=== PATIENT | male | born 1965 | race Caucasian/White ===

== ENCOUNTER 2016-10-26 11:26 | Inpatient (IN) | payer OTHER ==
[2016-10-26 12:19] VITALS: BMI 29.0
[2016-10-26] MEDS ORDERED: MAGNESIUM HYDROX 2400MG/30ML ORAL SUSPENSION 30 ML CUP PO PRN (15:11)
[2016-10-26] MEDS ORDERED: chlordiazePOXIDE HCL 25 MG CAPSULE PO PRN (15:11)
[2016-10-26] MEDS ORDERED: P-EPHED 60MG/TRIPROLIDI 2.5MG TABLET PO PRN (15:11)
[2016-10-26] MEDS ORDERED: hydrOXYzine PAMOATE 50 MG CAPSULE (FP) PO PRN (15:11)
[2016-10-26] MEDS ORDERED: MENTHOL/PHENOL 1 EACH UD MM PRN (15:11)
[2016-10-26] MEDS ORDERED: MAG HYDROX/AL HYDROX/SIMETH 30 ML UNIT-DOSE CUP PO PRN (15:11)
[2016-10-26] MEDS ORDERED: guaiFENesin/D-METHORPHAN HB 10 ML UNIT-DOSE CUPS PO PRN (15:11)
[2016-10-26] MEDS ORDERED: NICOTINE POLACRILEX 2 MG GUM BC PRN (15:11)
[2016-10-26] MEDS ORDERED: MAGNESIUM CITRATE 300 ML BOTTLE PO PRN (15:11)
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
[2016-10-26] MEDS ORDERED: chlordiazePOXIDE HCL 25 MG CAPSULE PO ONE (15:58)
[2016-10-26] MEDS: NICOTINE 14 MG/24 HOURS TOPICAL PATCH TD SCH (17:25)
[2016-10-26] MEDS: chlordiazePOXIDE HCL 25 MG CAPSULE PO SCH ×2 (17:25→22:02)
[2016-10-26] MEDS: THIAMINE HCL 100 MG TABLET (FP) PO SCH (22:02)
[2016-10-26] MEDS: diphenhydrAMINE HCL 50 MG CAPSULE PO PRN (22:02)
[2016-10-27] MEDS: chlordiazePOXIDE HCL 25 MG CAPSULE PO SCH ×4 (05:20→22:05)
--- NOTE | 2016-10-27 09:24 | PN ---
S CIWA - CIWA Score Nausea/Vomitin Muscle Tremors: 4-Moderate,w/Arms Extend Anxiety: 4-Mod. Anxious/Guarded Agitation: 4-Moderately Restless Paroxysmal Sweats: 3 Orientation: 0-Oriented Tacttile Disturbances: 1-Very Mild Itch/Numbness Auditory Disturbances: 0-None Visual Disturbances: 0-None Headache: 0-None Present CIWA-Ar Total Score: 19 BHS Progress Note (SOAP) Subjective: nausea, sweats, interrupted sleep, anxiety, tremors Objective: 10/27/16 09:23 Vital Signs - 8 hr 10/27/16 10/27/16 03:30 06:20 Temperature 97.2 F L Pulse Rate 90 Respiratory 18 18 Rate Blood Pressure 148/82 labs still pending Assessment: 10/27/16 09:23 withdrawal sx Plan: cont detox, methadoen dose confirmed and ordered 50mg daily first dose now., fluids, encourage ambulation
[2016-10-27] MEDS ORDERED: METHADONE HCL 10 MG TABLET PO SCH (09:30)
[2016-10-27] MEDS ORDERED: METHADONE HCL 10 MG TABLET ONE (09:42)
[2016-10-27] MEDS ORDERED: METHADONE HCL 40 MG DISPERSABLE TABLET ONE (09:42)
[2016-10-27] MEDS: METHADONE 40 MG, METHADONE 10 MG PO SCH (10:07)
[2016-10-27] MEDS: PRENATAL VITAMINS W/ FOLIC ACID TABLET (FP) PO SCH (10:07)
[2016-10-27] MEDS: NICOTINE 14 MG/24 HOURS TOPICAL PATCH TD SCH (10:08)
[2016-10-27 10:12] LABS: MCHC 34.2 g/dl (32.0-35.9); MEAN CELL VOLUME 102.2 fl (80-96); MEAN PLT VOLUME 10.6 fl (7.5-11.1); PLATELET COUNT 38 K/MM3 (134-434); RDW 14.9 % (11.9-15.9); WHITE BLOOD COUNT 4.2 K/mm3 (4.0-10.0)
[2016-10-27 10:35] LABS: ALBUMIN 3.3 g/dl (3.4-5.0); ALK PHOS 123 U/L (45-117); ANION GAP 10 (8-16); BILIRUBIN,TOTAL 1.9 mg/dL (0.2-1.0); CALCIUM 7.6 mg/dL (8.5-10.1); CO2 29 mmol/L (21-32); CREATININE 0.5 mg/dL (0.7-1.3); GLUCOSE,RANDOM 114 mg/dL (74-106); SGOT/AST 295 U/L (15-37); SGPT/ALT 104 U/L (12-78); TOT PROT 7.9 g/dl (6.4-8.2)
[2016-10-27] MEDS ORDERED: INFLUENZA VACCINE 45 MCG/0.5 ML (MDV 16-17) IM ONE (12:00)
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
--- NOTE | 2016-10-27 16:12 | EKG ---
Test Reason : Blood Pressure : / mmHG Vent. Rate : 079 BPM Atrial Rate : 079 BPM P-R Int : 152 ms QRS Dur : 096 ms QT Int : 398 ms P-R-T Axes : 053 074 076 degrees QTc Int : 456 ms NORMAL SINUS RHYTHM NON-SPECIFIC INTRA-VENTRICULAR CONDUCTION DELAY NONSPECIFIC ST ABNORMALITY NO PREVIOUS ECGS AVAILABLE Confirmed by SILVERIO DE LEÓN MD ([id number]) on 10/27/2016 4:11:53 PM Referred By: Confirmed By:SILVERIO DE LEÓN MD
[2016-10-27] MEDS: traZODone HCL 50 MG TABLET (FP) PO SCH (22:05)
[2016-10-27] MEDS: THIAMINE HCL 100 MG TABLET (FP) PO SCH (22:05)
[2016-10-28] MEDS ORDERED: METHADONE HCL 40 MG DISPERSABLE TABLET ONE (05:21)
[2016-10-28] MEDS ORDERED: METHADONE HCL 10 MG TABLET ONE (05:21)
[2016-10-28] MEDS: chlordiazePOXIDE HCL 25 MG CAPSULE PO SCH ×2 (05:22→10:05)
[2016-10-28] MEDS: METHADONE 40 MG, METHADONE 10 MG PO SCH (05:22)
--- NOTE | 2016-10-28 09:45 | PN ---
S CIWA - CIWA Score Nausea/Vomitin-Mild Nausea/No Vomiting Muscle Tremors: 3 Anxiety: 3 Agitation: 2 Paroxysmal Sweats: 2 Orientation: 0-Oriented Tacttile Disturbances: 1-Very Mild Itch/Numbness Auditory Disturbances: 0-None Visual Disturbances: 0-None Headache: 1-Very Mild CIWA-Ar Total Score: 13 BHS Progress Note (SOAP) Subjective: Sweats, body aches, tremors, interrupted sleep Objective: Laboratory Last Values WBC 4.2 K/mm3 (4.0-10.0) 10/27/16 06:00 RBC 3.60 M/mm3 (4.00-5.60) L 10/27/16 06:00 Hgb 12.6 GM/dL (11.7-16.9) 10/27/16 06:00 Hct 36.8 % (35.4-49) 10/27/16 06:00 MCV 102.2 fl (80-96) H 10/27/16 06:00 MCHC 34.2 g/dl (32.0-35.9) 10/27/16 06:00 RDW 14.9 % (11.9-15.9) 10/27/16 06:00 Plt Count 38 K/MM3 (134-434) L D 10/27/16 06:00 MPV 10.6 fl (7.5-11.1) 10/27/16 06:00 Sodium 142 mmol/L (136-145) 10/27/16 06:00 Potassium 3.5 mmol/L (3.5-5.1) D 10/27/16 06:00 Chloride 103 mmol/L (98-107) 10/27/16 06:00 Carbon Dioxide 29 mmol/L (21-32) 10/27/16 06:00 Anion Gap 10 (8-16) 10/27/16 06:00 BUN 6 mg/dL (7-18) L D 10/27/16 06:00 Creatinine 0.5 mg/dL (0.7-1.3) L D 10/27/16 06:00 Creat Clearance w eGFR > 60 (>60) 10/27/16 06:00 Random Glucose 114 mg/dL (74-106) H 10/27/16 06:00 Calcium 7.6 mg/dL (8.5-10.1) L 10/27/16 06:00 Total Bilirubin 1.9 mg/dL (0.2-1.0) H D 10/27/16 06:00 AST 295 U/L (15-37) H D 10/27/16 06:00 ALT 104 U/L (12-78) H D 10/27/16 06:00 Alkaline Phosphatase 123 U/L (45-117) H 10/27/16 06:00 Ammonia 128.63 umol/L (11-32) H 10/27/16 07:00 Total Protein 7.9 g/dl (6.4-8.2) 10/27/16 06:00 Albumin 3.3 g/dl (3.4-5.0) L 10/27/16 06:00 RPR Titer Nonreactive (NONREACTIVE) 10/27/16 06:00 labs noted Vital Signs Temperature 95.9 F L 10/28/16 06:04 Pulse Rate 84 10/28/16 06:04 Respiratory Rate 18 10/28/16 06:04 Blood Pressure 143/89 10/28/16 06:04 O2 Sat by Pulse Oximetry (%) Assessment: withdrawals sx Plan: continue detox Will repeat CMP and Add lacalose
[2016-10-28] MEDS: NICOTINE 14 MG/24 HOURS TOPICAL PATCH TD SCH (10:05)
[2016-10-28] MEDS: PRENATAL VITAMINS W/ FOLIC ACID TABLET (FP) PO SCH (10:05)
[2016-10-28] MEDS: IBUPROFEN 400 MG TABLET (FP) PO PRN ×2 (10:07→17:27)
[2016-10-28 10:24] LABS: URINE APPEARANCE CLEAR; URINE BILIRUBIN NEGATIVE (NEGATIVE); URINE BLOOD NEGATIVE (NEGATIVE); URINE COLOR AMBER; URINE GLUCOSE (UA) NEGATIVE (NEGATIVE); URINE KETONE NEGATIVE (NEGATIVE); URINE LEUK ESTERASE NEGATIVE (NEGATIVE); URINE NITRITE NEGATIVE (NEGATIVE); URINE PROTEIN NEGATIVE (NEGATIVE); URINE UROBILINOGEN 4.0 E.U/dl E.U./dl (0.2-1.0)
[2016-10-28] MEDS: LACTULOSE 20 GM/30 ML UDC (FOR ORAL USE ONLY) PO SCH ×2 (13:13→22:07)
[2016-10-28] MEDS: chlordiazePOXIDE 5 MG CAPSULE PO SCH ×2 (17:24→22:07)
[2016-10-28] MEDS: THIAMINE HCL 100 MG TABLET (FP) PO SCH (22:07)
[2016-10-28] MEDS: traZODone HCL 50 MG TABLET (FP) PO SCH (22:07)
[2016-10-28] MEDS: diphenhydrAMINE HCL 50 MG CAPSULE PO PRN (22:08)
[2016-10-29] MEDS ORDERED: METHADONE HCL 40 MG DISPERSABLE TABLET ONE (01:31)
[2016-10-29] MEDS ORDERED: METHADONE HCL 10 MG TABLET ONE (01:31)
[2016-10-29] MEDS: chlordiazePOXIDE 5 MG CAPSULE PO SCH ×2 (05:31→10:04)
[2016-10-29] MEDS: LACTULOSE 20 GM/30 ML UDC (FOR ORAL USE ONLY) PO SCH ×3 (05:31→22:07)
[2016-10-29] MEDS: METHADONE 40 MG, METHADONE 10 MG PO SCH (05:32)
[2016-10-29] MEDS: NICOTINE 14 MG/24 HOURS TOPICAL PATCH TD SCH (10:04)
[2016-10-29] MEDS: PRENATAL VITAMINS W/ FOLIC ACID TABLET (FP) PO SCH (10:04)
[2016-10-29] MEDS: IBUPROFEN 400 MG TABLET (FP) PO PRN ×2 (10:06→22:05)
[2016-10-29] MEDS: LOPERAMIDE HCL 2 MG CAPSULE PO PRN (10:34)
[2016-10-29 10:46] LABS: ALBUMIN 2.8 g/dl (3.4-5.0); ALK PHOS 124 U/L (45-117); ANION GAP 9 (8-16); BILIRUBIN,TOTAL 2.7 mg/dL (0.2-1.0); CALCIUM 8.9 mg/dL (8.5-10.1); CO2 29 mmol/L (21-32); CREATININE 0.5 mg/dL (0.7-1.3); GLUCOSE,RANDOM 96 mg/dL (74-106); SGOT/AST 136 U/L (15-37); SGPT/ALT 64 U/L (12-78); TOT PROT 7.2 g/dl (6.4-8.2)
--- NOTE | 2016-10-29 12:22 | PN ---
S Progress Note (SOAP) Subjective: Nausea, vomiting, diarrhea, tremor, anxious, restless (patient stated that his doctor told him that he has PNA in his liver, he denies AH/VH, he is A/A/Ox3) Objective: 10/29/16 12:16 Last Vital Signs Temp Pulse Resp BP Pulse Ox 96.6 F L 89 18 121/81 10/29/16 09:42 10/29/16 09:42 10/29/16 09:42 10/29/16 09:42 Laboratory Tests 10/27/16 10/27/16 10/27/16 06:00 06:00 06:00 WBC 4.2 RBC 3.60 L Hgb 12.6 Hct 36.8 MCV 102.2 H MCHC 34.2 RDW 14.9 Plt Count 38 L D MPV 10.6 Sodium 142 Potassium 3.5 D Chloride 103 Carbon Dioxide 29 Anion Gap 10 BUN 6 L D Creatinine 0.5 L D Creat Clearance w eGFR > 60 Random Glucose 114 H Calcium 7.6 L Total Bilirubin 1.9 H D AST 295 H D ALT 104 H D Alkaline Phosphatase 123 H Ammonia Total Protein 7.9 Albumin 3.3 L Urine Color Urine Appearance Urine pH Ur Specific [place] Urine Protein Urine Glucose (UA) Urine Ketones Urine Blood Urine Nitrite Urine Bilirubin Urine Urobilinogen Ur Leukocyte Esterase RPR Titer Nonreactive 10/27/16 10/28/16 10/29/16 07:00 08:20 07:20 WBC RBC Hgb Hct MCV MCHC RDW Plt Count MPV Sodium 138 Potassium 4.2 Chloride 100 Carbon Dioxide 29 Anion Gap 9 BUN 10 D Creatinine 0.5 L Creat Clearance w eGFR > 60 Random Glucose 96 Calcium 8.9 Total Bilirubin 2.7 H D AST 136 H D ALT 64 D Alkaline Phosphatase 124 H Ammonia 128.63 H Total Protein 7.2 Albumin 2.8 L Urine Color Shahrzad Urine Appearance Clear Urine pH 8.0 Ur Specific [place] 1.018 Urine Protein Negative Urine Glucose (UA) Negative Urine Ketones Negative Urine Blood Negative Urine Nitrite Negative Urine Bilirubin Negative Urine Urobilinogen 4.0 e.u/dl Ur Leukocyte Esterase Negative RPR Titer Labs noted: Albumin 2.8, ammonia [id number], abnormal LFTs Assessment: 10/29/16 12:31 Withdrawal symptoms Noted with elevated ammonia level and abnormal LFTs Plan: Continue detox, encouraged to drink lots of water for hydration Elevated ammonia level, abnormal LFTs secondary to chronic hepatitis C: repeat ammonia level and LFTs, continue lactulose, follow up with PCP post discharge for monitoring/management
[2016-10-29] MEDS: chlordiazePOXIDE HCL 10 MG CAPSULE PO SCH ×2 (17:30→22:07)
[2016-10-29] MEDS: diphenhydrAMINE HCL 50 MG CAPSULE PO PRN (22:07)
[2016-10-29] MEDS: traZODone HCL 50 MG TABLET (FP) PO SCH (22:07)
[2016-10-29] MEDS: THIAMINE HCL 100 MG TABLET (FP) PO SCH (22:07)
[2016-10-30] MEDS ORDERED: METHADONE HCL 10 MG TABLET ONE (03:43)
[2016-10-30] MEDS ORDERED: METHADONE HCL 40 MG DISPERSABLE TABLET ONE (03:45)
[2016-10-30] MEDS: LACTULOSE 20 GM/30 ML UDC (FOR ORAL USE ONLY) PO SCH ×3 (05:23→22:05)
[2016-10-30] MEDS: chlordiazePOXIDE HCL 10 MG CAPSULE PO SCH ×2 (05:23→10:06)
[2016-10-30] MEDS: METHADONE 40 MG, METHADONE 10 MG PO SCH (05:23)
[2016-10-30] MEDS: IBUPROFEN 400 MG TABLET (FP) PO PRN ×2 (05:25→22:04)
[2016-10-30] MEDS ORDERED: ONDANSETRON *ODT* 4 MG TABLET SL PRN (10:00)
[2016-10-30] MEDS: PRENATAL VITAMINS W/ FOLIC ACID TABLET (FP) PO SCH (10:05)
[2016-10-30] MEDS: NICOTINE 14 MG/24 HOURS TOPICAL PATCH TD SCH (10:06)
[2016-10-30 10:13] LABS: ALBUMIN 2.9 g/dl (3.4-5.0); BILIRUBIN,DIRECT 1.3 mg/dL (0.0-0.2); BILIRUBIN,TOTAL 2.3 mg/dL (0.2-1.0); TOT PROT 7.4 g/dl (6.4-8.2)
[2016-10-30] MEDS ORDERED: ONDANSETRON *ODT* 4 MG TABLET SL ONE (10:26)
[2016-10-30] MEDS: LOPERAMIDE HCL 2 MG CAPSULE PO PRN (10:38)
--- NOTE | 2016-10-30 10:57 | PN ---
BHS Progress Note (SOAP) Subjective: SWEATING,INTERRUPTED SLEEP,RESTLESS. Objective: 10/30/16 10:55 Vital Signs - 8 hr 10/30/16 10/30/16 10/30/16 03:30 05:58 09:32 Temperature 97.4 F L Pulse Rate 83 91 H Respiratory 18 18 20 Rate Blood Pressure 125/72 123/71 Laboratory Tests 10/27/16 10/27/16 10/27/16 06:00 06:00 06:00 WBC 4.2 RBC 3.60 L Hgb 12.6 Hct 36.8 MCV 102.2 H MCHC 34.2 RDW 14.9 Plt Count 38 L D MPV 10.6 Sodium 142 Potassium 3.5 D Chloride 103 Carbon Dioxide 29 Anion Gap 10 BUN 6 L D Creatinine 0.5 L D Creat Clearance w eGFR > 60 Random Glucose 114 H Calcium 7.6 L Total Bilirubin 1.9 H D Direct Bilirubin AST 295 H D ALT 104 H D Alkaline Phosphatase 123 H Ammonia Total Protein 7.9 Albumin 3.3 L Urine Color Urine Appearance Urine pH Ur Specific [place] Urine Protein Urine Glucose (UA) Urine Ketones Urine Blood Urine Nitrite Urine Bilirubin Urine Urobilinogen Ur Leukocyte Esterase RPR Titer Nonreactive 10/27/16 10/28/16 10/29/16 07:00 08:20 07:20 WBC RBC Hgb Hct MCV MCHC RDW Plt Count MPV Sodium 138 Potassium 4.2 Chloride 100 Carbon Dioxide 29 Anion Gap 9 BUN 10 D Creatinine 0.5 L Creat Clearance w eGFR > 60 Random Glucose 96 Calcium 8.9 Total Bilirubin 2.7 H D Direct Bilirubin AST 136 H D ALT 64 D Alkaline Phosphatase 124 H Ammonia 128.63 H Total Protein 7.2 Albumin 2.8 L Urine Color Shahrzad Urine Appearance Clear Urine pH 8.0 Ur Specific [place] 1.018 Urine Protein Negative Urine Glucose (UA) Negative Urine Ketones Negative Urine Blood Negative Urine Nitrite Negative Urine Bilirubin Negative Urine Urobilinogen 4.0 e.u/dl Ur Leukocyte Esterase Negative RPR Titer 10/30/16 10/30/16 06:30 06:30 WBC RBC Hgb Hct MCV MCHC RDW Plt Count MPV Sodium Potassium Chloride Carbon Dioxide Anion Gap BUN Creatinine Creat Clearance w eGFR Random Glucose Calcium Total Bilirubin 2.3 H Direct Bilirubin 1.3 H AST 116 H ALT 59 Alkaline Phosphatase 120 H Ammonia 73.66 H Total Protein 7.4 Albumin 2.9 L Urine Color Urine Appearance Urine pH Ur Specific [place] Urine Protein Urine Glucose (UA) Urine Ketones Urine Blood Urine Nitrite Urine Bilirubin Urine Urobilinogen Ur Leukocyte Esterase RPR Titer AMMONIA LEVEL IS DOWN TO 73 FROM 128, LIVER ENZYMES ARE DOWN Assessment: 10/30/16 10:56 WITHDRAWAL SX, Plan: CONTINUE DETOX
[2016-10-30] MEDS: THIAMINE HCL 100 MG TABLET (FP) PO SCH (22:03)
[2016-10-30] MEDS: diphenhydrAMINE HCL 50 MG CAPSULE PO PRN (22:05)
[2016-10-30] MEDS: traZODone HCL 50 MG TABLET (FP) PO SCH (22:05)
[2016-10-31] MEDS ORDERED: METHADONE HCL 10 MG TABLET ONE (03:04)
[2016-10-31] MEDS ORDERED: METHADONE HCL 40 MG DISPERSABLE TABLET ONE (03:05)
[2016-10-31] MEDS: LACTULOSE 20 GM/30 ML UDC (FOR ORAL USE ONLY) PO SCH (05:37)
[2016-10-31] MEDS: METHADONE 40 MG, METHADONE 10 MG PO SCH (05:37)
[2016-10-31 06:17] VITALS: BP 107/61; PULSE 82; TEMP 98.5
[2016-10-31] MEDS: PRENATAL VITAMINS W/ FOLIC ACID TABLET (FP) PO SCH (09:32)
[2016-10-31] MEDS: NICOTINE 14 MG/24 HOURS TOPICAL PATCH TD SCH (09:32)
--- NOTE | 2016-10-31 13:47 | DS ---
[facility] Detox Discharge Summary Admission Date: 10/26/16 Discharge Date: 10/31/16 - History Present History: Alcohol Dependence, MMTP Pertinent Past History: HEP C - Physical Exam Results Vital Signs: Vital Signs Temperature 98.5 F 10/31/16 06:17 Pulse Rate 82 10/31/16 06:17 Respiratory Rate 18 10/31/16 06:17 Blood Pressure 107/61 10/31/16 06:17 O2 Sat by Pulse Oximetry (%) Pertinent Admission Physical Exam Findings: WITHDRAWAL SX. Laboratory Last Values WBC 4.2 K/mm3 (4.0-10.0) 10/27/16 06:00 RBC 3.60 M/mm3 (4.00-5.60) L 10/27/16 06:00 Hgb 12.6 GM/dL (11.7-16.9) 10/27/16 06:00 Hct 36.8 % (35.4-49) 10/27/16 06:00 MCV 102.2 fl (80-96) H 10/27/16 06:00 MCHC 34.2 g/dl (32.0-35.9) 10/27/16 06:00 RDW 14.9 % (11.9-15.9) 10/27/16 06:00 Plt Count 38 K/MM3 (134-434) L D 10/27/16 06:00 MPV 10.6 fl (7.5-11.1) 10/27/16 06:00 Sodium 138 mmol/L (136-145) 10/29/16 07:20 Potassium 4.2 mmol/L (3.5-5.1) 10/29/16 07:20 Chloride 100 mmol/L (98-107) 10/29/16 07:20 Carbon Dioxide 29 mmol/L (21-32) 10/29/16 07:20 Anion Gap 9 (8-16) 10/29/16 07:20 BUN 10 mg/dL (7-18) D 10/29/16 07:20 Creatinine 0.5 mg/dL (0.7-1.3) L 10/29/16 07:20 Creat Clearance w eGFR > 60 (>60) 10/29/16 07:20 Random Glucose 96 mg/dL (74-106) 10/29/16 07:20 Calcium 8.9 mg/dL (8.5-10.1) 10/29/16 07:20 Total Bilirubin 2.3 mg/dL (0.2-1.0) H 10/30/16 06:30 Direct Bilirubin 1.3 mg/dL (0.0-0.2) H 10/30/16 06:30 AST 116 U/L (15-37) H 10/30/16 06:30 ALT 59 U/L (12-78) 10/30/16 06:30 Alkaline Phosphatase 120 U/L (45-117) H 10/30/16 06:30 Ammonia 73.66 umol/L (11-32) H 10/30/16 06:30 Total Protein 7.4 g/dl (6.4-8.2) 10/30/16 06:30 Albumin 2.9 g/dl (3.4-5.0) L 10/30/16 06:30 Urine Color Shahrzad 10/28/16 08:20 Urine Appearance Clear 10/28/16 08:20 Urine pH 8.0 (5.0-8.0) 10/28/16 08:20 Ur Specific [place] 1.018 (1.001-1.035) 10/28/16 08:20 Urine Protein Negative (NEGATIVE) 10/28/16 08:20 Urine Glucose (UA) Negative (NEGATIVE) 10/28/16 08:20 Urine Ketones Negative (NEGATIVE) 10/28/16 08:20 Urine Blood Negative (NEGATIVE) 10/28/16 08:20 Urine Nitrite Negative (NEGATIVE) 10/28/16 08:20 Urine Bilirubin Negative (NEGATIVE) 10/28/16 08:20 Urine Urobilinogen 4.0 e.u/dl E.U./dl (0.2-1.0) 10/28/16 08:20 Ur Leukocyte Esterase Negative (NEGATIVE) 10/28/16 08:20 RPR Titer Nonreactive (NONREACTIVE) 10/27/16 06:00 LABS NOTED - Treatment Hospital Course: Detox Protocol Followed, Detoxed Safely, Responded well, Discharged Condition Good, Rehab Referral Accepted - Medication Discharge Medications: Ambulatory Orders Trazodone HCl [Desyrel -] 50 mg PO HS #30 tablet 05/15/16 Acetaminophen [Tylenol Extra Strength] 500 mg PO Q6H PRN 10/26/16 Lactulose 10 gm PO DAILY 10/26/16 Pantoprazole Sodium [Protonix -] 40 mg PO DAILY 10/26/16 Trazodone HCl [Desyrel -] 50 mg PO HS #30 tablet 10/27/16 - Diagnosis (1) Alcohol dependence with uncomplicated withdrawal Status: Acute (2) Drug-induced mood disorder Status: Acute (3) Nicotine dependence Status: Acute Qualifiers: Nicotine product type: cigarettes Substance use status: in withdrawal Qualified Code(s): F17.213 - Nicotine dependence, cigarettes, with withdrawal (4) Cirrhosis of liver Status: Chronic Qualifiers: Hepatic cirrhosis type: unspecified hepatic cirrhosis Ascites presence : without ascites Qualified Code(s): K74.60 - Unspecified cirrhosis of liver (5) Hepatitis C Status: Chronic Qualifiers: Viral hepatitis chronicity: chronic Hepatic coma status: without hepatic coma Qualified Code(s): B18.2 - Chronic viral hepatitis C (6) Opioid dependence on agonist therapy Status: Chronic (7) PTSD (post-traumatic stress disorder) Status: Chronic - AMA Did Patient Leave Against Medical Advice: No
== END 2016-10-31 09:33 | disposition home or self-care (01) | DRG 897 ==
LOC: YASAS 11:26 → Y3N 15:50
PROVIDERS: ADMIT Internal Medicine; ATTEND Internal Medicine
PROC: HZ2ZZZZ Detoxification Services for Substance Abuse Treatment (ICD-10-PCS; principal; 2016-10-31)
DX: F19.230 Other psychoactive substance dependence with withdrawal, uncomplicated (principal); F11.20 Opioid dependence, uncomplicated; F10.230 Alcohol dependence with withdrawal, uncomplicated; F17.213 Nicotine dependence, cigarettes, with withdrawal; F19.24 Other psychoactive substance dependence with psychoactive substance-induced mood disorder; F43.10 Post-traumatic stress disorder, unspecified; K74.60 Unspecified cirrhosis of liver; B18.2 Chronic viral hepatitis C
CPT/HCPCS: 36415; 80053; 80076; 81003; 82140; 85027; 86593; 93005; 93010

== ENCOUNTER 2016-12-08 11:18 | Inpatient (IN) | payer OTHER ==
[2016-12-08 14:07] VITALS: BMI 28.3
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
[2016-12-08] MEDS ORDERED: MENTHOL/PHENOL 1 EACH UD MM PRN (15:29)
[2016-12-08] MEDS ORDERED: diphenhydrAMINE HCL 50 MG CAPSULE PO PRN (15:29)
[2016-12-08] MEDS ORDERED: MAGNESIUM HYDROX 2400MG/30ML ORAL SUSPENSION 30 ML CUP PO PRN (15:29)
[2016-12-08] MEDS ORDERED: ACETAMINOPHEN 325 MG TABLET (FP) PO PRN (15:29)
[2016-12-08] MEDS ORDERED: P-EPHED 60MG/TRIPROLIDI 2.5MG TABLET PO PRN (15:29)
[2016-12-08] MEDS ORDERED: guaiFENesin/D-METHORPHAN HB 10 ML UNIT-DOSE CUPS PO PRN (15:29)
[2016-12-08] MEDS ORDERED: MAG HYDROX/AL HYDROX/SIMETH 30 ML UNIT-DOSE CUP PO PRN (15:29)
[2016-12-08] MEDS ORDERED: chlordiazePOXIDE HCL 25 MG CAPSULE PO PRN (15:29)
[2016-12-08] MEDS ORDERED: LOPERAMIDE HCL 2 MG CAPSULE PO PRN (15:29)
[2016-12-08] MEDS ORDERED: MAGNESIUM CITRATE 300 ML BOTTLE PO PRN (15:29)
[2016-12-08] MEDS ORDERED: NICOTINE POLACRILEX 4 MG GUM BUC PRN (15:29)
[2016-12-08] MEDS ORDERED: chlordiazePOXIDE HCL 25 MG CAPSULE PO ONE (15:44)
[2016-12-08] MEDS: chlordiazePOXIDE HCL 25 MG CAPSULE PO SCH ×2 (16:38→22:54)
[2016-12-08] MEDS: LIDOCAINE 5% TOPICAL PATCH TP SCH (16:41)
[2016-12-08 19:09] LABS: URINE APPEARANCE CLEAR; URINE BILIRUBIN NEGATIVE (NEGATIVE); URINE BLOOD NEGATIVE (NEGATIVE); URINE COLOR DKYELLOW; URINE GLUCOSE (UA) NEGATIVE (NEGATIVE); URINE KETONE NEGATIVE (NEGATIVE); URINE LEUK ESTERASE NEGATIVE (NEGATIVE); URINE NITRITE NEGATIVE (NEGATIVE); URINE PROTEIN NEGATIVE (NEGATIVE); URINE UROBILINOGEN 4.0 E.U/dl E.U./dl (0.2-1.0)
[2016-12-08] MEDS: THIAMINE HCL 100 MG TABLET (FP) PO SCH (22:54)
[2016-12-09] MEDS: chlordiazePOXIDE HCL 25 MG CAPSULE PO SCH ×4 (06:00→22:28)
[2016-12-09] MEDS: hydrOXYzine PAMOATE 50 MG CAPSULE (FP) PO PRN (09:23)
[2016-12-09] MEDS ORDERED: METHADONE HCL 10 MG TABLET PO SCH (09:30)
[2016-12-09 10:22] LABS: MCH 35.2 pg (25.7-33.7); MCHC 34.3 g/dl (32.0-35.9); MEAN CELL VOLUME 102.6 fl (80-96); MEAN PLT VOLUME 9.9 fl (7.5-11.1); RDW 15.5 % (11.9-15.9); WHITE BLOOD COUNT 6.4 K/mm3 (4.0-10.0)
[2016-12-09] MEDS: PRENATAL VITAMINS W/ FOLIC ACID TABLET (FP) PO SCH (10:38)
[2016-12-09] MEDS: PANTOPRAZOLE 40 MG TABLET (FP) PO SCH (10:38)
[2016-12-09] MEDS: NICOTINE 21 MG/24 HOURS TOPICAL PATCH TD SCH (10:39)
[2016-12-09] MEDS: LIDOCAINE 5% TOPICAL PATCH TP SCH (10:39)
[2016-12-09] MEDS: LACTULOSE 20 GM/30 ML UDC (FOR ORAL USE ONLY) PO SCH (10:40)
[2016-12-09 10:45] LABS: ALBUMIN 3.2 g/dl (3.4-5.0); ALK PHOS 126 U/L (45-117); ANION GAP 8 (8-16); BILIRUBIN,TOTAL 1.5 mg/dL (0.2-1.0); CALCIUM 7.8 mg/dL (8.5-10.1); CO2 33 mmol/L (21-32); CREATININE 0.6 mg/dL (0.7-1.3); GLUCOSE,RANDOM 155 mg/dL (74-106); SGOT/AST 178 U/L (15-37); SGPT/ALT 86 U/L (12-78); TOT PROT 7.9 g/dl (6.4-8.2)
[2016-12-09] MEDS ORDERED: METHADONE 40 MG, METHADONE 10 MG PO ONE (10:45)
[2016-12-09 11:32] LABS: PLATELET COUNT 36 K/MM3 (134-434)
[2016-12-09] MEDS ORDERED: METHADONE HCL 40 MG DISPERSABLE TABLET ONE (11:45)
[2016-12-09] MEDS ORDERED: METHADONE HCL 10 MG TABLET ONE (11:45)
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
[2016-12-09 13:19] LABS: HIV 1 & 2 AB NEGATIVE; HIV 1 AGp24 NEGATIVE
--- NOTE | 2016-12-09 13:59 | PN ---
S CIWA - CIWA Score Nausea/Vomitin Muscle Tremors: 5 Anxiety: 4-Mod. Anxious/Guarded Agitation: 4-Moderately Restless Paroxysmal Sweats: 3 Orientation: 0-Oriented Tacttile Disturbances: 1-Very Mild Itch/Numbness Auditory Disturbances: 0-None Visual Disturbances: 0-None Headache: 0-None Present CIWA-Ar Total Score: 19 BHS Progress Note (SOAP) Subjective: Anxiety,tremors,sweating,interrupted sleep,restless. Objective: 12/09/16 13:57 Vital Signs - 8 hr 12/09/16 12/09/16 06:00 10:00 Temperature 99.9 F H 97.2 F L Pulse Rate 86 98 H Respiratory 18 16 Rate Blood Pressure 142/80 145/76 Laboratory Last Values WBC 6.4 K/mm3 (4.0-10.0) D 12/09/16 06:00 RBC 3.69 M/mm3 (4.00-5.60) L 12/09/16 06:00 Hgb 13.0 GM/dL (11.7-16.9) 12/09/16 06:00 Hct 37.9 % (35.4-49) 12/09/16 06:00 MCV 102.6 fl (80-96) H 12/09/16 06:00 MCHC 34.3 g/dl (32.0-35.9) 12/09/16 06:00 RDW 15.5 % (11.9-15.9) 12/09/16 06:00 Plt Count 36 K/MM3 (134-434) L* 12/09/16 06:00 MPV 9.9 fl (7.5-11.1) 12/09/16 06:00 Sodium 141 mmol/L (136-145) 12/09/16 06:00 Potassium 3.7 mmol/L (3.5-5.1) 12/09/16 06:00 Chloride 100 mmol/L (98-107) 12/09/16 06:00 Carbon Dioxide 33 mmol/L (21-32) H 12/09/16 06:00 Anion Gap 8 (8-16) 12/09/16 06:00 BUN 7 mg/dL (7-18) D 12/09/16 06:00 Creatinine 0.6 mg/dL (0.7-1.3) L 12/09/16 06:00 Creat Clearance w eGFR > 60 (>60) 12/09/16 06:00 Random Glucose 155 mg/dL (74-106) H D 12/09/16 06:00 Calcium 7.8 mg/dL (8.5-10.1) L 12/09/16 06:00 Total Bilirubin 1.5 mg/dL (0.2-1.0) H D 12/09/16 06:00 AST 178 U/L (15-37) H D 12/09/16 06:00 ALT 86 U/L (12-78) H D 12/09/16 06:00 Alkaline Phosphatase 126 U/L (45-117) H 12/09/16 06:00 Total Protein 7.9 g/dl (6.4-8.2) 12/09/16 06:00 Albumin 3.2 g/dl (3.4-5.0) L 12/09/16 06:00 Urine Color Dkyellow 12/08/16 17:30 Urine Appearance Clear 12/08/16 17:30 Urine pH 7.0 (5.0-8.0) 12/08/16 17:30 Ur Specific [place] 1.012 (1.001-1.035) 12/08/16 17:30 Urine Protein Negative (NEGATIVE) 12/08/16 17:30 Urine Glucose (UA) Negative (NEGATIVE) 12/08/16 17:30 Urine Ketones Negative (NEGATIVE) 12/08/16 17:30 Urine Blood Negative (NEGATIVE) 12/08/16 17:30 Urine Nitrite Negative (NEGATIVE) 12/08/16 17:30 Urine Bilirubin Negative (NEGATIVE) 12/08/16 17:30 Urine Urobilinogen 4.0 e.u/dl E.U./dl (0.2-1.0) 12/08/16 17:30 Ur Leukocyte Esterase Negative (NEGATIVE) 12/08/16 17:30 RPR Titer Nonreactive (NONREACTIVE) 12/09/16 06:00 HIV 1&2 Antibody Screen Negative 12/09/16 08:00 HIV P24 Antigen Negative 12/09/16 08:00 labs noted Assessment: 12/09/16 13:58 Withdrawal sx. Plan: Continue detox
[2016-12-09] MEDS ORDERED: chlordiazePOXIDE HCL 25 MG CAPSULE PO ONE (14:30)
--- NOTE | 2016-12-09 15:03 | EKG ---
Test Reason : Blood Pressure : / mmHG Vent. Rate : 073 BPM Atrial Rate : 073 BPM P-R Int : 158 ms QRS Dur : 092 ms QT Int : 408 ms P-R-T Axes : 033 070 050 degrees QTc Int : 449 ms NORMAL SINUS RHYTHM POOR DATA QUALITY, INTERPRETATION MAY BE ADVERSELY AFFECTED WHEN COMPARED WITH ECG OF 26-OCT-2016 17:12, NO SIGNIFICANT CHANGE WAS FOUND Confirmed by SILVERIO DE LEÓN MD ([id number]) on 12/09/2016 3:03:18 PM Referred By: Confirmed By:SILVERIO DE LEÓN MD
[2016-12-09] MEDS ORDERED: chlordiazePOXIDE HCL 25 MG CAPSULE ONE (15:17)
[2016-12-09] MEDS: IBUPROFEN 400 MG TABLET (FP) PO PRN (17:43)
[2016-12-09] MEDS: traZODone HCL 50 MG TABLET (FP) PO SCH (22:28)
[2016-12-09] MEDS: THIAMINE HCL 100 MG TABLET (FP) PO SCH (22:28)
[2016-12-10] MEDS: chlordiazePOXIDE HCL 25 MG CAPSULE PO SCH ×2 (05:20→10:11)
[2016-12-10] MEDS ORDERED: METHADONE HCL 10 MG TABLET ONE (05:22)
[2016-12-10] MEDS ORDERED: METHADONE HCL 40 MG DISPERSABLE TABLET ONE (05:22)
[2016-12-10] MEDS: METHADONE 40 MG, METHADONE 10 MG PO SCH (05:22)
[2016-12-10] MEDS: LACTULOSE 20 GM/30 ML UDC (FOR ORAL USE ONLY) PO SCH (10:11)
[2016-12-10] MEDS: PRENATAL VITAMINS W/ FOLIC ACID TABLET (FP) PO SCH (10:11)
[2016-12-10] MEDS: PANTOPRAZOLE 40 MG TABLET (FP) PO SCH (10:11)
[2016-12-10] MEDS: NICOTINE 21 MG/24 HOURS TOPICAL PATCH TD SCH (10:11)
--- NOTE | 2016-12-10 10:17 | PN ---
S CIWA - CIWA Score Nausea/Vomitin Muscle Tremors: 3 Anxiety: 3 Agitation: 3 Paroxysmal Sweats: 1-Minimal Palms Moist Orientation: 0-Oriented Tacttile Disturbances: 1-Very Mild Itch/Numbness Auditory Disturbances: 1-Very Mild Visual Disturbances: 1-Very Mild Sensitivity Headache: 2-Mild CIWA-Ar Total Score: 18 BHS Progress Note (SOAP) Subjective: ALERT,IRRITABLE,ANXIOUS,INTERRUPTED SLEEP,TREMOR,PAIN IN THE BODY,BACK, HISTORY OF ASTHMA ON ALBUTEROL INHALER Objective: 12/10/16 10:13 Vital Signs Temperature 98.2 F 12/10/16 09:59 Pulse Rate 83 12/10/16 09:59 Respiratory Rate 18 12/10/16 09:59 Blood Pressure 146/70 12/10/16 09:59 O2 Sat by Pulse Oximetry (%) 12/10/16 10:13 Laboratory Last Values WBC 6.4 K/mm3 (4.0-10.0) D 12/09/16 06:00 RBC 3.69 M/mm3 (4.00-5.60) L 12/09/16 06:00 Hgb 13.0 GM/dL (11.7-16.9) 12/09/16 06:00 Hct 37.9 % (35.4-49) 12/09/16 06:00 MCV 102.6 fl (80-96) H 12/09/16 06:00 MCHC 34.3 g/dl (32.0-35.9) 12/09/16 06:00 RDW 15.5 % (11.9-15.9) 12/09/16 06:00 Plt Count 36 K/MM3 (134-434) L* 12/09/16 06:00 MPV 9.9 fl (7.5-11.1) 12/09/16 06:00 Sodium 141 mmol/L (136-145) 12/09/16 06:00 Potassium 3.7 mmol/L (3.5-5.1) 12/09/16 06:00 Chloride 100 mmol/L (98-107) 12/09/16 06:00 Carbon Dioxide 33 mmol/L (21-32) H 12/09/16 06:00 Anion Gap 8 (8-16) 12/09/16 06:00 BUN 7 mg/dL (7-18) D 12/09/16 06:00 Creatinine 0.6 mg/dL (0.7-1.3) L 12/09/16 06:00 Creat Clearance w eGFR > 60 (>60) 12/09/16 06:00 Random Glucose 155 mg/dL (74-106) H D 12/09/16 06:00 Calcium 7.8 mg/dL (8.5-10.1) L 12/09/16 06:00 Total Bilirubin 1.5 mg/dL (0.2-1.0) H D 12/09/16 06:00 AST 178 U/L (15-37) H D 12/09/16 06:00 ALT 86 U/L (12-78) H D 12/09/16 06:00 Alkaline Phosphatase 126 U/L (45-117) H 12/09/16 06:00 Total Protein 7.9 g/dl (6.4-8.2) 12/09/16 06:00 Albumin 3.2 g/dl (3.4-5.0) L 12/09/16 06:00 Urine Color Dkyellow 12/08/16 17:30 Urine Appearance Clear 12/08/16 17:30 Urine pH 7.0 (5.0-8.0) 12/08/16 17:30 Ur Specific [place] 1.012 (1.001-1.035) 12/08/16 17:30 Urine Protein Negative (NEGATIVE) 12/08/16 17:30 Urine Glucose (UA) Negative (NEGATIVE) 12/08/16 17:30 Urine Ketones Negative (NEGATIVE) 12/08/16 17:30 Urine Blood Negative (NEGATIVE) 12/08/16 17:30 Urine Nitrite Negative (NEGATIVE) 12/08/16 17:30 Urine Bilirubin Negative (NEGATIVE) 12/08/16 17:30 Urine Urobilinogen 4.0 e.u/dl E.U./dl (0.2-1.0) 12/08/16 17:30 Ur Leukocyte Esterase Negative (NEGATIVE) 12/08/16 17:30 RPR Titer Nonreactive (NONREACTIVE) 12/09/16 06:00 HIV 1&2 Antibody Screen Negative 12/09/16 08:00 HIV P24 Antigen Negative 12/09/16 08:00 Assessment: 12/10/16 10:13 12/10/16 10:14 WITHDRAWAL SYMPTOM,LUNG MILD EXPIRATORY WHEEZING Plan: CONTINUE DETOX,ALBUTEROL INHALER,THROMBOCYTOPENIA PLATELET COUNT 36K, TRANSAMINASEMIA,REPEAT CBC,CMP, INR IN AM,D/C TYLENOL,INITIAL GLUCOSE 155,BGM MONITORING
[2016-12-10] MEDS: LIDOCAINE 5% TOPICAL PATCH TP SCH (11:11)
[2016-12-10] MEDS: chlordiazePOXIDE 5 MG CAPSULE PO SCH ×2 (16:57→22:18)
[2016-12-10] MEDS: traZODone HCL 50 MG TABLET (FP) PO SCH (22:18)
[2016-12-10] MEDS: THIAMINE HCL 100 MG TABLET (FP) PO SCH (22:18)
[2016-12-11] MEDS ORDERED: METHADONE HCL 10 MG TABLET ONE (04:20)
[2016-12-11] MEDS ORDERED: METHADONE HCL 40 MG DISPERSABLE TABLET ONE (04:21)
[2016-12-11] MEDS: IBUPROFEN 400 MG TABLET (FP) PO PRN (05:22)
[2016-12-11] MEDS: chlordiazePOXIDE 5 MG CAPSULE PO SCH ×2 (05:23→10:17)
[2016-12-11] MEDS: METHADONE 40 MG, METHADONE 10 MG PO SCH (05:23)
--- NOTE | 2016-12-11 09:33 | PN ---
BHS Progress Note (SOAP) Subjective: INTERRUPTED SLEEP, SWEATS, SHAKES, LBP Objective: 12/11/16 09:31 Vital Signs Temperature 99.1 F 12/11/16 06:00 Pulse Rate 84 12/11/16 06:00 Respiratory Rate 18 12/11/16 06:00 Blood Pressure 115/76 12/11/16 06:00 O2 Sat by Pulse Oximetry (%) Laboratory Tests 12/08/16 12/09/16 12/09/16 17:30 06:00 06:00 WBC 6.4 D RBC 3.69 L Hgb 13.0 Hct 37.9 MCV 102.6 H MCHC 34.3 RDW 15.5 Plt Count 36 L* MPV 9.9 Sodium 141 Potassium 3.7 Chloride 100 Carbon Dioxide 33 H Anion Gap 8 BUN 7 D Creatinine 0.6 L Creat Clearance w eGFR > 60 Random Glucose 155 H D Calcium 7.8 L Total Bilirubin 1.5 H D AST 178 H D ALT 86 H D Alkaline Phosphatase 126 H Total Protein 7.9 Albumin 3.2 L Urine Color Dkyellow Urine Appearance Clear Urine pH 7.0 Ur Specific [place] 1.012 Urine Protein Negative Urine Glucose (UA) Negative Urine Ketones Negative Urine Blood Negative Urine Nitrite Negative Urine Bilirubin Negative Urine Urobilinogen 4.0 e.u/dl Ur Leukocyte Esterase Negative RPR Titer HIV 1&2 Antibody Screen HIV P24 Antigen 12/09/16 12/09/16 06:00 08:00 WBC RBC Hgb Hct MCV MCHC RDW Plt Count MPV Sodium Potassium Chloride Carbon Dioxide Anion Gap BUN Creatinine Creat Clearance w eGFR Random Glucose Calcium Total Bilirubin AST ALT Alkaline Phosphatase Total Protein Albumin Urine Color Urine Appearance Urine pH Ur Specific [place] Urine Protein Urine Glucose (UA) Urine Ketones Urine Blood Urine Nitrite Urine Bilirubin Urine Urobilinogen Ur Leukocyte Esterase RPR Titer Nonreactive HIV 1&2 Antibody Screen Negative HIV P24 Antigen Negative 12/11/16 11:02 PT AOX3 LYING IN BED IN NAD SKIN NO ECCHYMOSIS OR HEMATOMA Assessment: 12/11/16 09:31 WITHDRAWAL SX'S THROMBOCYTOPENIA ELEVATED TRANSAMINASES LBP BETTER WITH LIDOCAINE PATCH 12/11/16 11:03 12/11/16 11:03 Plan: CONT. DETOX INCREASE FLUIDS F/UP PENDING LABS D/C MOTRIN CONT. LIDOCAINE PATCH
[2016-12-11] MEDS: LACTULOSE 20 GM/30 ML UDC (FOR ORAL USE ONLY) PO SCH (10:17)
[2016-12-11] MEDS: PANTOPRAZOLE 40 MG TABLET (FP) PO SCH (10:17)
[2016-12-11] MEDS: PRENATAL VITAMINS W/ FOLIC ACID TABLET (FP) PO SCH (10:17)
[2016-12-11] MEDS: LIDOCAINE 5% TOPICAL PATCH TP SCH (10:18)
[2016-12-11] MEDS: NICOTINE 21 MG/24 HOURS TOPICAL PATCH TD SCH (10:18)
[2016-12-11] MEDS: ALBUTEROL SO4 6.7 GM HFA INHALER IH PRN ×2 (10:22→22:14)
[2016-12-11] MEDS: chlordiazePOXIDE HCL 10 MG CAPSULE PO SCH ×2 (17:31→22:13)
[2016-12-11] MEDS: THIAMINE HCL 100 MG TABLET (FP) PO SCH (22:12)
[2016-12-11] MEDS: traZODone HCL 50 MG TABLET (FP) PO SCH (22:13)
[2016-12-12] MEDS ORDERED: METHADONE HCL 40 MG DISPERSABLE TABLET ONE (04:46)
[2016-12-12] MEDS ORDERED: METHADONE HCL 10 MG TABLET ONE (04:46)
[2016-12-12] MEDS: chlordiazePOXIDE HCL 10 MG CAPSULE PO SCH ×2 (05:22→10:37)
[2016-12-12] MEDS: METHADONE 40 MG, METHADONE 10 MG PO SCH (05:23)
[2016-12-12] MEDS: PANTOPRAZOLE 40 MG TABLET (FP) PO SCH (10:37)
[2016-12-12] MEDS: NICOTINE 21 MG/24 HOURS TOPICAL PATCH TD SCH (10:37)
[2016-12-12] MEDS: LIDOCAINE 5% TOPICAL PATCH TP SCH (10:39)
[2016-12-12] MEDS: PRENATAL VITAMINS W/ FOLIC ACID TABLET (FP) PO SCH (10:40)
[2016-12-12] MEDS: ALBUTEROL SO4 6.7 GM HFA INHALER IH PRN ×2 (10:41→22:10)
[2016-12-12] MEDS: LACTULOSE 20 GM/30 ML UDC (FOR ORAL USE ONLY) PO SCH (10:46)
--- NOTE | 2016-12-12 11:53 | PN ---
BHS Progress Note (SOAP) Subjective: better, but interrupted sleep, sweats, tired, headache Objective: 12/12/16 11:52 Vital Signs Temperature 97.9 F 12/12/16 10:13 Pulse Rate 87 12/12/16 10:13 Respiratory Rate 16 12/12/16 10:13 Blood Pressure 134/55 12/12/16 10:13 O2 Sat by Pulse Oximetry (%) Laboratory Tests 12/08/16 12/09/16 12/09/16 17:30 06:00 06:00 WBC 6.4 D RBC 3.69 L Hgb 13.0 Hct 37.9 MCV 102.6 H MCHC 34.3 RDW 15.5 Plt Count 36 L* MPV 9.9 Sodium Potassium Chloride Carbon Dioxide Anion Gap BUN Creatinine Creat Clearance w eGFR POC Glucometer Random Glucose Calcium Total Bilirubin AST ALT Alkaline Phosphatase Total Protein Albumin Urine Color Dkyellow Urine Appearance Clear Urine pH 7.0 Ur Specific [place] 1.012 Urine Protein Negative Urine Glucose (UA) Negative Urine Ketones Negative Urine Blood Negative Urine Nitrite Negative Urine Bilirubin Negative Urine Urobilinogen 4.0 e.u/dl Ur Leukocyte Esterase Negative RPR Titer Hepatitis C Antibody >11.0 H HIV 1&2 Antibody Screen HIV P24 Antigen 12/09/16 12/09/16 12/09/16 06:00 06:00 08:00 WBC RBC Hgb Hct MCV MCHC RDW Plt Count MPV Sodium 141 Potassium 3.7 Chloride 100 Carbon Dioxide 33 H Anion Gap 8 BUN 7 D Creatinine 0.6 L Creat Clearance w eGFR > 60 POC Glucometer Random Glucose 155 H D Calcium 7.8 L Total Bilirubin 1.5 H D AST 178 H D ALT 86 H D Alkaline Phosphatase 126 H Total Protein 7.9 Albumin 3.2 L Urine Color Urine Appearance Urine pH Ur Specific [place] Urine Protein Urine Glucose (UA) Urine Ketones Urine Blood Urine Nitrite Urine Bilirubin Urine Urobilinogen Ur Leukocyte Esterase RPR Titer Nonreactive Hepatitis C Antibody HIV 1&2 Antibody Screen Negative HIV P24 Antigen Negative 12/10/16 12/11/16 12/12/16 16:46 05:21 07:37 WBC RBC Hgb Hct MCV MCHC RDW Plt Count MPV Sodium Potassium Chloride Carbon Dioxide Anion Gap BUN Creatinine Creat Clearance w eGFR POC Glucometer 115 111 137 Random Glucose Calcium Total Bilirubin AST ALT Alkaline Phosphatase Total Protein Albumin Urine Color Urine Appearance Urine pH Ur Specific [place] Urine Protein Urine Glucose (UA) Urine Ketones Urine Blood Urine Nitrite Urine Bilirubin Urine Urobilinogen Ur Leukocyte Esterase RPR Titer Hepatitis C Antibody HIV 1&2 Antibody Screen HIV P24 Antigen 12/12/16 16:22 pt aox3 lying in bed in nad Assessment: 12/12/16 11:52 withdrawal sx;s 12/12/16 16:22 Plan: cont. detox increase fluid s motrin prn d/c in am
[2016-12-12] MEDS: THIAMINE HCL 100 MG TABLET (FP) PO SCH (22:06)
[2016-12-12] MEDS: traZODone HCL 50 MG TABLET (FP) PO SCH (22:07)
[2016-12-12] MEDS: hydrOXYzine PAMOATE 50 MG CAPSULE (FP) PO PRN (22:09)
[2016-12-13] MEDS ORDERED: METHADONE HCL 10 MG TABLET ONE (05:09)
[2016-12-13] MEDS ORDERED: METHADONE HCL 40 MG DISPERSABLE TABLET ONE (05:09)
[2016-12-13] MEDS: METHADONE 40 MG, METHADONE 10 MG PO SCH (06:00)
[2016-12-13] MEDS: ALBUTEROL SO4 6.7 GM HFA INHALER IH PRN (06:02)
[2016-12-13 06:54] VITALS: BP 112/59; PULSE 81; TEMP 98.6
--- NOTE | 2016-12-13 08:53 | DS ---
[facility] Detox Discharge Summary Admission Date: 12/08/16 Discharge Date: 12/13/16 - History Present History: Alcohol Dependence, MMTP - Physical Exam Results Vital Signs: Vital Signs Temperature 98.6 F 12/13/16 06:53 Pulse Rate 81 12/13/16 06:53 Respiratory Rate 18 12/13/16 06:53 Blood Pressure 112/59 12/13/16 06:53 O2 Sat by Pulse Oximetry (%) - Treatment Hospital Course: Detox Protocol Followed, Detoxed Safely, Responded well, Discharged Condition Good, Rehab Referral Accepted - Medication Discharge Medications: Ambulatory Orders Trazodone HCl [Desyrel -] 50 mg PO HS #30 tablet 05/15/16 Acetaminophen [Tylenol Extra Strength] 500 mg PO Q6H PRN 10/26/16 Lactulose 10 gm PO DAILY 10/26/16 Pantoprazole Sodium [Protonix -] 40 mg PO DAILY 10/26/16 Trazodone HCl 50 mg PO HS #30 tablet 12/09/16 - Diagnosis (1) Methadone maintenance therapy patient Current Visit: Yes Status: Chronic (2) Alcohol dependence with uncomplicated withdrawal Current Visit: Yes Status: Chronic (3) Chronic back pain Current Visit: Yes Status: Chronic Qualifiers: Back pain location: low back pain Back pain laterality: unspecified (4) Cirrhosis of liver Current Visit: Yes Status: Chronic Qualifiers: Hepatic cirrhosis type: unspecified hepatic cirrhosis Ascites presence : without ascites Qualified Code(s): K74.60 - Unspecified cirrhosis of liver (5) Hepatitis C Current Visit: Yes Status: Chronic Qualifiers: Viral hepatitis chronicity: chronic Hepatic coma status: without hepatic coma Qualified Code(s): B18.2 - Chronic viral hepatitis C (6) Nicotine dependence Current Visit: Yes Status: Chronic Qualifiers: Nicotine product type: cigarettes Substance use status: in withdrawal Qualified Code(s): F17.213 - Nicotine dependence, cigarettes, with withdrawal - AMA Did Patient Leave Against Medical Advice: No
[2016-12-13] MEDS: LACTULOSE 20 GM/30 ML UDC (FOR ORAL USE ONLY) PO SCH (09:10)
[2016-12-13] MEDS: NICOTINE 21 MG/24 HOURS TOPICAL PATCH TD SCH (09:10)
[2016-12-13] MEDS: LIDOCAINE 5% TOPICAL PATCH TP SCH (09:10)
[2016-12-13] MEDS: PRENATAL VITAMINS W/ FOLIC ACID TABLET (FP) PO SCH (09:39)
[2016-12-13] MEDS: PANTOPRAZOLE 40 MG TABLET (FP) PO SCH (09:39)
[2016-12-16 00:07] LABS: HCV LOG 10 3.555 (.)
== END 2016-12-13 09:53 | disposition home or self-care (01) | DRG 897 ==
LOC: YASAS 11:18 → Y6N 15:04
PROVIDERS: ADMIT Internal Medicine; ATTEND Internal Medicine
PROC: HZ2ZZZZ Detoxification Services for Substance Abuse Treatment (ICD-10-PCS; principal; 2016-12-13)
DX: F11.20 Opioid dependence, uncomplicated (principal); F10.230 Alcohol dependence with withdrawal, uncomplicated; F17.210 Nicotine dependence, cigarettes, uncomplicated; F19.24 Other psychoactive substance dependence with psychoactive substance-induced mood disorder; F43.10 Post-traumatic stress disorder, unspecified; G47.00 Insomnia, unspecified; K74.60 Unspecified cirrhosis of liver; B18.2 Chronic viral hepatitis C; M54.5 Low back pain; G89.29 Other chronic pain
CPT/HCPCS: 36415; 80053; 81003; 85027; 86593; 87389; 87522; 93005; 93010